=== PATIENT | male | born 1960 | race Caucasian/White ===

== ENCOUNTER 2018-10-12 18:48 | Emergency (ER) | payer SELFPAY ==
[~2018-10-12] VITALS: Wt 103.8 kg
--- NOTE | 2018-10-12 20:49 | ERD ---
ER Documentation Chief Complaint Chief Complaint SENT FROM CLINIC WITH EKG SHOWING STEMI HPI This is a 58-year-old male with a history of hypertension who presents for evaluation of chest pain since yesterday. Patient endorses left-sided chest pain which has been going on since yesterday, it is painful and localized over his left chest wall, the patient attributed the movement that he had made earlier, and he had thought it is been muscular. He was sent from the clinic because his EKG showed an ST elevation ME on the computer interpretation read. The patient himself denies any exertional symptoms, he has not had any shortness of breath, no leg swelling or hemoptysis. ROS All systems reviewed and are negative except as per history of present illness. Allergies Allergies: Coded Allergies: No Known Allergy (Unverified , 10/12/18) PMhx/Soc Medical and Surgical Hx: pt denies Medical Hx History of Surgery: Yes (cholecystectomy 07) Anesthesia Reaction: No Hx Alcohol Use: No Hx Substance Use: No Hx Tobacco Use: No Smoking Status: Never smoker Physical Exam Vitals Vital Signs Date Temp Pulse Resp B/P (MAP) Pulse Ox O2 O2 Flow FiO2 Time Delivery Rate 10/13/18 98.0 81 17 107/63 97 Room Air 01:57 (78) 10/13/18 69 17 126/84 99 Room Air 00:10 (98) 10/12/18 97.6 65 20 146/83 99 Room Air 20:45 (104) 10/12/18 97.6 78 18 149/82 96 18:53 (104) Physical Exam Const: Pleasant well-appearing nontoxic Head: Atraumatic Eyes: Normal Conjunctiva ENT: Normal External Ears, Nose and Mouth. Neck: Full range of motion. No meningismus. Resp: Clear to auscultation bilaterally no rales wheezing or rhonchi Cardio: Regular rate and rhythm, no murmurs, no JVD Abd: Soft, non tender, non distended. Normal bowel sounds Skin: No petechiae or rashes Back: No midline or flank tenderness Ext: No cyanosis, or edema Neur: Awake and alert Psych: Normal Mood and Affect Result Diagram: 10/12/18204210/12/182042 Results 24 hrs Laboratory Tests Test 10/12/18 20:43 10/12/18 23:29 White Blood Count 8.1 10^3/ul Red Blood Count 5.22 10^6/ul Hemoglobin 15.9 g/dl Hematocrit 47.3 % Mean Corpuscular Volume 90.6 fl Mean Corpuscular Hemoglobin 30.5 pg Mean Corpuscular Hemoglobin Concent 33.6 g/dl Red Cell Distribution Width 13.0 % Platelet Count 241 10^3/UL Mean Platelet Volume 10.9 fl Immature Granulocytes % 0.200 % Neutrophils % 53.0 % Lymphocytes % 35.6 % Monocytes % 8.6 % Eosinophils % 1.9 % Basophils % 0.7 % Nucleated Red Blood Cells % 0.0 /100WBC Immature Granulocytes # 0.020 10^3/ul Neutrophils # 4.3 10^3/ul Lymphocytes # 2.9 10^3/ul Monocytes # 0.7 10^3/ul Eosinophils # 0.2 10^3/ul Basophils # 0.1 10^3/ul Nucleated Red Blood Cells # 0.0 10^3/ul Prothrombin Time 11.8 Sec Prothrombin Time Ratio 0.9 INR International Normalized Ratio 0.86 Sodium Level 141 mmol/L Potassium Level 3.7 mmol/L Chloride Level 103 mmol/L Carbon Dioxide Level 29 mmol/L Anion Gap 9 Blood Urea Nitrogen 12 mg/dl Creatinine 0.70 mg/dl Est Glomerular Filtrat Rate mL/min > 60 mL/min Glucose Level 117 mg/dl Calcium Level 11.1 mg/dl Total Bilirubin 0.1 mg/dl Direct Bilirubin 0.00 mg/dl Indirect Bilirubin 0.1 mg/dl Aspartate Amino Transf (AST/SGOT) 42 IU/L Alanine Aminotransferase (ALT/SGPT) 32 IU/L Alkaline Phosphatase 80 IU/L Troponin I < 0.012 ng/ml < 0.012 ng/ml Total Protein 8.5 g/dl Albumin 4.5 g/dl Globulin 4.00 g/dl Albumin/Globulin Ratio 1.12 Procedures/MDM This is a 58-year-old male who presents for evaluation of chest pain. I reviewed his EKG from the outside clinic, it actually shows repolarization in the anterior leads, but no ST depressions, the ST findings are consistent with rehabilitation and are not consistent with ischemia. I considered pulmonary embolism, aortic dissection, pneumothorax among other diagnoses. Evaluation for acute coronary syndrome was performed. The HEART score (www.mdcalc.com) was utilized for risk stratification and found to be = 3. Repeat EKG and troponin @ 3 hours were unchanged. Based on this evaluation the patients risk of major adverse cardiac events is <1%. Shared decision making occurred with patient and the decision has been made to discharge the patient for outpatient evaluation and functional study within 72 hours. At discharge the patient was in no acute distress. EKG: Rate/Rhythm: Normal Sinus Rhythm QRS, ST, T-waves: Incomplete right bundle branch block. No changes consistent w/ acute ischemia Impression: No evidence of ischemia or arrhythmia Departure Diagnosis: Primary Impression: Chest pain Chest pain type: unspecified Qualified Codes: R07.9 - Chest pain, unspecified Condition: Serious EMY LOPEZ MD Oct 12, 2018 20:49
[2018-10-13 01:57] VITALS: BP 107/63; PULSE 81; RESP 17
== END 2018-10-13 02:00 | disposition home or self-care (01) ==
LOC: E/R 18:48
DX: R07.9 Chest pain, unspecified (principal); I10 Essential (primary) hypertension
CPT/HCPCS: 71045; 80053; 84484; 85025; 85610; 93005